=== PATIENT | female | born 1970 | race Caucasian/White ===

== ENCOUNTER 2017-07-08 18:19 | Emergency (ER) | payer BC ==
[~2017-07-08] VITALS: Ht 152.4 cm; Wt 48.6 kg
[2017-07-08] MEDS ORDERED: VIVLODEX10 MG (18:28)
[2017-07-08 20:24] VITALS: BP 124/69
== END 2017-07-08 20:24 | disposition home or self-care (01) ==
LOC: ED 18:19
DX: G43.909 Migraine, unspecified, not intractable, without status migrainosus (principal); F17.210 Nicotine dependence, cigarettes, uncomplicated
CPT/HCPCS: J1200; J1885; J2550; J7030

== ENCOUNTER 2020-04-25 09:56 | Emergency (ER) | payer BC ==
[~2020-04-25 09:56] MED LIST: VIVLODEX10 MG
[2020-04-25 10:59] LABS: EOS # 0.2 (0.04-0.40); EOS % 2.7 % (1.0-5.0); HEMOGLOBIN 13.4 g/dL (12.5-16.0); LYMPH# 1.8 (1.50-4.00); MEAN CELL VOLUME 95 fl (78-100); MEAN CORPUSCULAR HEMOGLOBIN 31 pg (27-31); MEAN CORPUSCULAR HGB CONC 33 g/dL (33-37); MEAN PLATELET VOLUME 9.4 fl (7.4-10.4); MONO # 0.5 (0.20-0.80); NEU # 5.2 (1.40-6.50); PLATELET COUNT 339 K/mm3 (130-400); RED BLOOD COUNT 4.31 M/mm3 (4.10-5.30); RED CELL DISTRIBUTION WIDTH 13.1 % (11.5-14.5); WHITE BLOOD COUNT 7.7 K/mm3 (4.8-10.8)
[2020-04-25 11:06] LABS: ALBUMIN 4.3 g/dL (3.5-5.0); POTASSIUM 4.5 mmol/L (3.5-5.1); SODIUM 142 mmol/L (136-145)
[2020-04-25 11:08] LABS: CALCIUM 9.6 mg/dL (8.3-10.5)
[2020-04-25 11:09] LABS: GLUCOSE 86 mg/dL (65-105); TOTAL PROTEIN 6.9 g/dL (6.4-8.3)
[2020-04-25 11:10] LABS: CARBON DIOXIDE 25 mmol/L (22-29)
[2020-04-25 11:11] LABS: TOTAL BILIRUBIN 0.4 mg/dL (0.2-1.2)
[2020-04-25 11:14] LABS: AST-SGOT 22 U/L (5-34)
[2020-04-25 11:15] LABS: ALT/SGPT 16 U/L (0-55)
[2020-04-25 11:21] LABS: D-DIMER 0.11 mg/L FEU (0.15-0.50)
[2020-04-25 11:25] LABS: TROPONIN-I < 0.03 ng/mL (<0.030)
[2020-04-25 11:57] VITALS: BP 128/81
== END 2020-04-25 11:55 | disposition home or self-care (01) ==
LOC: ED 09:56
PROVIDERS: Nurse Practitioner Primary Care
DX: R00.0 Tachycardia, unspecified (principal); Z20.828 Contact with and (suspected) exposure to other viral communicable diseases; Z88.6 Allergy status to analgesic agent

== ENCOUNTER → 2021-02-14 | Outpatient (CLI) | payer BC ==
[2021-02-14 10:15] LABS: BASO # 0.03 (0.02-0.10); EOS # 0.18 (0.04-0.40); EOS % 2.6 % (1.0-5.0); HEMATOCRIT 41.1 % (37.0-47.0); HEMOGLOBIN 13.5 g/dL (12.5-16.0); LYMPH# 2.02 (1.50-4.00); MEAN CELL VOLUME 94 fl (78-100); MEAN CORPUSCULAR HEMOGLOBIN 31 pg (27-31); MEAN CORPUSCULAR HGB CONC 33 g/dL (33-37); MEAN PLATELET VOLUME 9.1 fl (7.4-10.4); MONO # 0.44 (0.20-0.80); NEU # 4.28 (1.40-6.50); PLATELET COUNT 327 K/mm3 (130-400); RED BLOOD COUNT 4.37 M/mm3 (4.10-5.30); RED CELL DISTRIBUTION WIDTH 12.7 % (11.5-14.5)
[2021-02-14 10:25] LABS: POTASSIUM 4.3 mmol/L (3.5-5.1); SODIUM 140 mmol/L (136-145)
[2021-02-14 10:26] LABS: ALBUMIN 4.2 g/dL (3.5-5.0)
[2021-02-14 10:27] LABS: CALCIUM 9.5 mg/dL (8.3-10.5)
[2021-02-14 10:28] LABS: GLUCOSE 93 mg/dL (65-105); TOTAL PROTEIN 7.1 g/dL (6.4-8.3)
[2021-02-14 10:29] LABS: CARBON DIOXIDE 23 mmol/L (22-29)
[2021-02-14 10:30] LABS: TOTAL BILIRUBIN 0.4 mg/dL (0.2-1.2)
[2021-02-14 10:33] LABS: AST-SGOT 18 U/L (5-34)
[2021-02-14 10:35] LABS: ALT/SGPT 17 U/L (0-55)
[2021-02-14 11:20] LABS: ERYTHROCYTE SEDIMENTATION RATE 13 mm/hr (0-20)
[2021-02-14 22:19] LABS: ESTRADIOL <10 pg/mL (()); FOLLICLE STIMULATING HORMONE 87.1 mIU/mL (()); LUTENIZING HORMONE 30.3 mIU/mL (()); PROGESTERONE <0.1 ng/mL (())
== END ==
LOC: LAB 09:48
PROVIDERS: Family Medicine
DX: Z00.00 Encounter for general adult medical examination without abnormal findings (principal); M06.9 Rheumatoid arthritis, unspecified; E55.9 Vitamin D deficiency, unspecified; R53.83 Other fatigue; N91.2 Amenorrhea, unspecified; E78.5 Hyperlipidemia, unspecified

== ENCOUNTER → 2021-09-05 | Outpatient (CLI) | payer BC | LOC: RAD 09:54 | DX: M54.2 Cervicalgia (principal) ==

== ENCOUNTER → 2021-09-10 | Outpatient (CLI) | payer BC ==
[2021-09-10 09:58] LABS: BASO # 0.04 K/mm3 (0.02-0.10); EOS # 0.29 K/mm3 (0.04-0.40); EOS % 4.5 % (1.0-5.0); HEMATOCRIT 40.1 % (37.0-47.0); LYMPH# 2.26 K/mm3 (1.50-4.00); MEAN CELL VOLUME 93 fl (78-100); MEAN CORPUSCULAR HEMOGLOBIN 30 pg (27-31); MEAN CORPUSCULAR HGB CONC 32 g/dL (33-37); MEAN PLATELET VOLUME 9.1 fl (7.4-10.4); MONO # 0.42 K/mm3 (0.20-0.80); NEU # 3.49 K/mm3 (1.40-6.50); PLATELET COUNT 311 K/mm3 (130-400); RED CELL DISTRIBUTION WIDTH 12.9 % (11.5-14.5); WHITE BLOOD COUNT 6.5 K/mm3 (4.8-10.8)
== END ==
LOC: LAB 09:33
PROVIDERS: Family Medicine
DX: G43.009 Migraine without aura, not intractable, without status migrainosus (principal); M19.90 Unspecified osteoarthritis, unspecified site; R00.0 Tachycardia, unspecified; I83.893 Varicose veins of bilateral lower extremities with other complications; R53.83 Other fatigue

== ENCOUNTER → 2022-03-04 | Outpatient (CLI) | payer BC ==
[2022-03-04 10:20] LABS: BASO # 0.03 K/mm3 (0.02-0.10); EOS # 0.18 K/mm3 (0.04-0.40); EOS % 2.3 % (1.0-5.0); HEMATOCRIT 45.6 % (37.0-47.0); HEMOGLOBIN 14.6 g/dL (12.5-16.0); LYMPH# 2.34 K/mm3 (1.50-4.00); MEAN CELL VOLUME 96 fl (78-100); MEAN CORPUSCULAR HEMOGLOBIN 31 pg (27-31); MEAN CORPUSCULAR HGB CONC 32 g/dL (33-37); MEAN PLATELET VOLUME 9.2 fl (7.4-10.4); MONO # 0.49 K/mm3 (0.20-0.80); NEU # 4.86 K/mm3 (1.40-6.50); PLATELET COUNT 324 K/mm3 (130-400); RED BLOOD COUNT 4.77 M/mm3 (4.10-5.30); WHITE BLOOD COUNT 7.9 K/mm3 (4.8-10.8)
[2022-03-04 10:28] LABS: ALBUMIN 4.5 g/dL (3.5-5.0); POTASSIUM 4.3 mmol/L (3.5-5.1)
[2022-03-04 10:30] LABS: TOTAL PROTEIN 7.6 g/dL (6.4-8.3)
[2022-03-04 10:32] LABS: TOTAL BILIRUBIN 0.6 mg/dL (0.2-1.2)
== END ==
LOC: LAB 09:56
PROVIDERS: Family Medicine
DX: Z00.00 Encounter for general adult medical examination without abnormal findings (principal); I83.893 Varicose veins of bilateral lower extremities with other complications; M19.90 Unspecified osteoarthritis, unspecified site; M06.89 Other specified rheumatoid arthritis, multiple sites; M54.2 Cervicalgia; G43.009 Migraine without aura, not intractable, without status migrainosus; E78.5 Hyperlipidemia, unspecified; R00.0 Tachycardia, unspecified

== ENCOUNTER → 2022-08-18 | Outpatient (CLI) | payer BC | LOC: RAD 14:59 | DX: M50.30 Other cervical disc degeneration, unspecified cervical region (principal) ==

== ENCOUNTER → 2022-09-01 | Outpatient (CLI) | payer BC | LOC: RAD 08:31 | DX: M50.30 Other cervical disc degeneration, unspecified cervical region (principal) ==

== ENCOUNTER → 2024-08-09 | Outpatient (CLI) | payer OTHER | LOC: MAMMO 14:44 | DX: Z12.31 Encounter for screening mammogram for malignant neoplasm of breast (principal); N63.20 Unspecified lump in the left breast, unspecified quadrant ==

== ENCOUNTER → 2024-08-15 | Outpatient (CLI) | payer OTHER | LOC: MAMMO 07:35 | DX: N63.20 Unspecified lump in the left breast, unspecified quadrant (principal) ==